=== PATIENT | female | born 1985 | race American Indian/Alaskan Native ===

== ENCOUNTER 2017-01-07 23:01 | Emergency (ER) | payer SELFPAY ==
[2017-01-08 01:25] VITALS: BP 124/74
== END 2017-01-08 03:00 | disposition left against medical advice (07) ==
LOC: ED 23:01
DX: R05 Cough (principal); R42 Dizziness and giddiness; Z53.21 Procedure and treatment not carried out due to patient leaving prior to being seen by health care provider